=== PATIENT | male | born 1990 | race Caucasian/White ===

== ENCOUNTER → 2016-06-26 | Outpatient (CLI) | payer OTHER ==
[~2016-06-26] MED LIST: AMOX875T PO; LORA10TA57 PO
--- NOTE | 2016-06-26 09:47 | DIAGNOSTIC IMAGING REPORT ---
[facility] CLINICAL HISTORY: Left flank pain COMPARISON STUDY: No previous studies for comparison. FINDINGS: There is no pathologic bowel dilatation. There are no calcification suspicious for urinary tract calculi. There is borderline splenic enlargement IMPRESSION: 1. Suspected borderline splenic enlargement 2. No evidence of pathologic bowel dilatation 3. No calculi identified. Electronically signed by: Adis Manzano M.D. 06/26/2016 9:45 AM Dictated Date/Time: 06/26/2016 9:43 AM
== END | disposition home or self-care (01) ==
LOC: C.RAD1850 09:35
PROVIDERS: ATTEND Family Medicine
DX: R10.9 Unspecified abdominal pain (principal)